=== PATIENT | male | born 1995 | race Caucasian/White ===

== ENCOUNTER 2018-12-25 12:46 | Emergency (ER) | payer BC, SELFPAY ==
[2018-12-25 13:16] VITALS: BP 129/73; PULSE 76; RESP 18; TEMP 36.7; O2SAT 99
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
[2018-12-25] MEDS: Acetaminophen 500 MG TAB 1000 MG PO (14:51)
[2018-12-25] MEDS: oxyCODONE 5 MG TAB PO (14:51)
== END 2018-12-25 14:50 | disposition home or self-care (01) ==
PROVIDERS: Emergency Provider Physician Assistant
DX: S42.021A Displaced fracture of shaft of right clavicle, initial encounter for closed fracture (principal); V86.62XA Passenger of snowmobile injured in nontraffic accident, initial encounter
CPT/HCPCS: 99283; 73000; 99282; L3650; L3908